=== PATIENT | female | born 1995 | race Caucasian/White ===

== ENCOUNTER 2023-11-25 19:21 | Emergency (ER) | payer OTHER, SELFPAY ==
[2023-11-25 19:36] VITALS: BP 136/86; PULSE 105; TEMP 37.3; O2SAT 99; BMI 22.5
--- NOTE | 2023-11-25 20:23 | US_ITS ---
[address] [address] Patient Name: BONNIE DESOUZA MRN: [id number] date: 1995 Sex: F Assigned Patient Location: ER Current Patient Location: ER Accession/Order Number: [id number] Exam Date: 11/25/2023 20:36 Report Date: 11/25/2023 22:01 At the request of: YANN DASILVA Procedure: US OB transvaginal EXAM: Pelvic ultrasound ultrasound CLINICAL INDICATION: R/O ectopic. COMPARISON: None TECHNIQUE: Transvaginal pelvic ultrasound was performed with grayscale and color Doppler images were obtained. FINDINGS: Uterus: No abnormal uterine masses. Endometrium measures 11 mm thickness. No intrauterine evident. Right ovary: Measures 3.0 x 1.9 x 2.1 cm. Normal color flow and Doppler arterial and venous waveforms. No ovarian masses. Right ovarian dominant follicle measuring up to 1.4 cm. Left ovary: Measures 3.1 x 1.7 x 2.9 cm. Normal color flow and Doppler arterial and venous waveforms. No ovarian masses. Intermediate echogenicity left ovarian lesion measuring up to 1.9 cm. Small amount of free fluid in the pelvis. US/US OB transvaginal IMPRESSION: 1. No intrauterine evident. Normal early intrauterine , ectopic or spontaneous cannot be excluded. Recommend clinical and ultrasound follow-up. 2. Indeterminate small left ovarian lesion. Electronically authenticated by: ANGÉLICA LEGGETT Date: 11/25/2023 22:01
[2023-11-25 20:26] LABS: Bilirubin Urine NEGATIVE (NEGATIVE); Blood Urine NEGATIVE (NEGATIVE); Clarity Urine CLEAR (CLEAR); Color Urine YELLOW (YELLOW); Glucose Urine UA NEGATIVE (NEGATIVE); Ketones Urine NEGATIVE (NEGATIVE); Leukocyte Esterase Urine NEGATIVE (NEGATIVE); Nitrite Urine NEGATIVE (NEGATIVE); Protein Urine NEGATIVE (NEG/TRACE); Specific Gravity Urine >=1.030 (1.005-1.025)
--- NOTE | 2023-11-25 20:27 | ED_ITS ---
HPI - Female Genitourinary General Chief complaint: OB/Uterine Contractions Stated complaint: Issue Time Seen by Provider: 11/25/23 19:31 Source: patient Mode of arrival: walk-in Limitations: no limitations History of Present Illness HPI Narrative: This 28-year-old female who has had an ectopic in the past and 3 live births presents for evaluation of right-sided abdominal pain and positive test. The patient states she had 2 menstrual periods in October which was unusual for her. She started having breast tenderness and became concerned that she may be and took a home test that was positive. She is not currently having any vaginal bleeding. She declines need for any pain medication. She request to have an ultrasound to rule out an ectopic. She states she had an ectopic in 2016 or 2017. She had methotrexate at that time and did not require surgery. She denies any dizziness shortness of breath or syncope. She has no back pain. Related Data Home Medications ?Medication ?Instructions ?Recorded ?Confirmed No Known Home Medications 11/25/23 11/25/23 Allergies Allergy/AdvReac Type Severity Reaction Status Date / Time No Known Drug Allergies Allergy Verified 11/25/23 19:43 Review of Systems ROS Status of ROS 10 or more systems reviewed and unremark able except as noted in history and below Exam Narrative Exam Narrative: Vital signs and Nursing Notes reviewed: Patient is afebrile, she is mildly tachycardic with a pulse of 105, blood pressure is stable at 136/86, she is not hypoxic with pulse ox of 99% on room air General: Awake, alert, oriented, no acute distress, lying comfortably on the stretcher HEENT: Normocephalic atraumatic, mucous membranes are moist and pink, eyes are clear, normal conjunctiva, vision is grossly intact Neck: Supple, no meningeal signs, no anterior or posterior cervical lymphadenopathy Chest: Lungs are clear to auscultation with good air entry, there is no wheezing rhonchi or rales appreciated no accessory muscle use, patient is speaking in complete sentences-no chest wall tenderness to palpation CVS: Regular rate and rhythm S1-S2, no murmurs rubs or gallops, pulses are brisk and equal bilaterally ABD: Soft, nondistended, nontender, no rebound guarding or rigidity, bowel sounds are normal, no pulsatile masses appreciated Extremities: Moving all extremities, no lower extremity tenderness or swelling noted, negative Homans' sign, pulses are brisk and equal bilaterally Skin: Normal in appearance without rash,pallor, petechiae or purpura Neuro: No focal deficits Constitutional Vital Signs, click to edit/add: Last Vital Signs Temp 99.1 F 11/25/23 19:36 Pulse 105 H 11/25/23 19:36 Resp 18 11/25/23 19:36 BP 136/86 11/25/23 19:36 Pulse Ox 99 11/25/23 19:36 O2 Del Method Room Air 11/25/23 19:36 Course Vital Signs Vital signs: Vital Signs Temperature 99.1 F 11/25/23 19:36 Pulse Rate 105 H 11/25/23 19:36 Respiratory Rate 18 11/25/23 19:36 Blood Pressure 136/86 11/25/23 19:36 Pulse Oximetry 99 11/25/23 19:36 Oxygen Delivery Method Room Air 11/25/23 19:36 Temperature 99.1 F 11/25/23 19:36 Pulse Rate 105 H 11/25/23 19:36 Respiratory Rate 18 11/25/23 19:36 Blood Pressure 136/86 11/25/23 19:36 Pulse Oximetry 99 11/25/23 19:36 Oxygen Delivery Method Room Air 11/25/23 19:36 MDM - Female Genitourinary MDM Narrative Medical decision making narrative: This 28-year-old female who is G8, P3 who has had an ectopic in the past presents for evaluation of right lower quadrant abdominal pain and 2 menstrual periods during the month of October 2023 who had a positive test earlier in the day presents for evaluation and concerns that she has an ectopic . Her abdomen is soft. Vital signs are stable. Urine test was positive. Beta quantitative hCG is 50, blood type is B+. Ultrasound of the abdomen and pelvis does not show any intrauterine or ectopic at this time. I did explain to the patient that with a quant of 50 this could be an early that is normal or could be an ectopic. The patient sees Dr. cAe at [facility]. She was given a copy of her ultrasound to share with Dr. Ace as well as the results of her lab work. Medical Records Medical records narrative: [place] [address] Ultrasound Report Signed Patient: BONNIE DESOUZA MR#: [id number] : 1995 Acct:[id number] Age/Sex: 28 / F ADM Date: 11/25/23 Loc: ER Attending Dr: Ordering Physician: Jenelle Khan Date of Service: 11/25/23 Procedure(s): US OB transvaginal Accession Number(s): [id number] cc: DONNIE LEVI ; Jenelle Marker~ [facility] [place] [id number] Patient Name: BONNIE DESOUZA MRN: [id number] date: 1995 Sex: F Assigned Patient Location: ER Current Patient Location: ER Accession/Order Number: [id number] Exam Date: 11/25/2023 20:36 Report Date: 11/25/2023 22:01 At the request of: JENELLE KHAN Procedure: US OB transvaginal EXAM: Pelvic ultrasound ultrasound CLINICAL INDICATION: R/O ectopic. COMPARISON: None TECHNIQUE: Transvaginal pelvic ultrasound was performed with grayscale and color Doppler images were obtained. FINDINGS: Uterus: No abnormal uterine masses. Endometrium measures 11 mm thickness. No intrauterine evident. Right ovary: Measures 3.0 x 1.9 x 2.1 cm. Normal color flow and Doppler arterial and venous waveforms. No ovarian masses. Right ovarian dominant follicle measuring up to 1.4 cm. Left ovary: Measures 3.1 x 1.7 x 2.9 cm. Normal color flow and Doppler arterial and venous waveforms. No ovarian masses. Intermediate echogenicity left ovarian lesion measuring up to 1.9 cm. Small amount of free fluid in the pelvis. US/US OB transvaginal IMPRESSION: 1. No intrauterine evident. Normal early intrauterine , ectopic or spontaneous cannot be excluded. Recommend clinical and ultrasound follow-up. 2. Indeterminate small left ovarian lesion. Electronically authenticated by: ANGÉLICA LEGGETT Date: 11/25/2023 22:01 Lab Data Labs: Lab Results 11/25/23 11/25/23 Range/Units 20:15 21:08 WBC 10.1 (4.0-11.0) 10^3/uL RBC 4.56 (4.20-5.40) 10^6/uL Hgb 13.3 (12.0-16.0) g/dL Hct 40.3 (36.0-48.0) % MCV 88.4 (81.0-99.0) fL MCH 29.2 (26.7-34.0) pg MCHC 33.0 (29.9-35.2) g/dL RDW 11.9 (11.0-15.0) % Plt Count 346 (150-450) 10^3/uL MPV 9.3 L (9.5-13.5) fL Neut % (Auto) 58.4 (43.0-75.0) % Lymph % (Auto) 28.2 (20.5-60.0) % [place] % (Auto) 5.8 (1.7-12.0) % Eos % (Auto) 6.6 (0.9-7.0) % Baso % (Auto) 0.7 (0.2-2.0) % Neut # (Auto) 5.9 (1.4-6.5) 10^3/uL Lymph # (Auto) 2.8 (1.2-3.8) 10^3/uL [place] # (Auto) 0.6 (0.3-0.8) 10^3/uL Eos # (Auto) 0.7 (0.0-0.7) 10^3/uL Baso # (Auto) 0.1 (0.0-0.1) 10^3/uL Abs Immat Gran (auto) 0.03 (0.00-0.03) 10^3/uL Imm/Tot Granulo (auto) 0.3 (0.0-0.5) % Sodium 140 (136-145) mmol/L Potassium 3.7 (3.5-5.1) mmol/L Chloride 103 (98-107) mmol/L Carbon Dioxide 28.9 (21.0-32.0) mmol/L Anion Gap 11.8 BUN 12.0 (7.0-18.0) mg/dL Creatinine 0.70 (0.55-1.02) mg/dL Est GFR ( Amer) >60 (>=60) Est GFR (Non-Af Amer) >60 (>=60) BUN/Creatinine Ratio 17.1 Glucose 91 (74-106) mg/dL Calcium 9.3 (8.5-10.1) mg/dL Total Bilirubin 1.1 H (0.2-1.0) mg/dL AST 10 L (15-37) U/L ALT 21 (14-59) U/L Alkaline Phosphatase 79 (46-116) U/L Total Protein 8.1 (6.4-8.2) g/dL Albumin 4.3 (3.4-5.0) g/dL Globulin 3.8 g/dL Albumin/Globulin Ratio 1.1 HCG, Quant 50 mIU/mL Urine Color Yellow (YELLOW) Urine Clarity Clear (CLEAR) Urine pH 6.0 (5.0-9.0) Ur Specific [place] >=1.030 A (1.005-1.025) Urine Protein Negative (NEG/TRACE) mg/dL Urine Glucose (UA) Negative (NEGATIVE) mg/dL Urine Ketones Negative (NEGATIVE) mg/dL Urine Occult Blood Negative (NEGATIVE) Urine Nitrite Negative (NEGATIVE) Urine Bilirubin Negative (NEGATIVE) Urine Urobilinogen 1.0 (0.2-1.0) EU/dL Ur Leukocyte Esterase Negative (NEGATIVE) Urine RBC None seen (0-2) #/HPF Urine WBC None seen (NONE SEEN) #/HPF Ur Squamous Epith Cells None seen (NONE/RARE) #/LPF Urine Crystals None seen (None Seen) #/HPF Urine Bacteria None seen (NONE SEEN) #/HPF Urine Casts None seen (NONE SEEN) #/LPF Urine Mucus None seen (NONE SEEN) Ur Culture Indicated? No Urine HCG, Qual Positive A (NEGATIVE) Blood Type B Positive Discharge Plan Discharge Stand Alone Forms: Portal Instructions Chief Complaint: OB/Uterine Contractions Clinical Impression: Early stage of Patient Disposition: Home, Self-Care Time of Disposition Decision: 22:16 Condition: Good Prescriptions / Home Meds: No Action No Known Home Medications Print Language: Uzbek Instructions: (ED) Additional Instructions: Follow up closely with Dr Ace for repeat quantitative HCG and further testing Referrals: DONNIE LEVI [Primary Care Provider] - 1 week
[2023-11-25 20:29] LABS: HCG Qualitative Urine* POSITIVE (NEGATIVE); Internal Control Within Normal Limits
[2023-11-25 20:32] LABS: Bacteria Urine NONE SEEN #/HPF (NONE SEEN); Cast Seen? NONE SEEN #/LPF (NONE SEEN); Crystals Seen? None Seen #/HPF (None Seen); Mucus Urine NONE SEEN (NONE SEEN); RBC Urine NONE SEEN #/HPF (0-2); Squamous Epithelial Cell Urine NONE SEEN #/LPF (NONE/RARE); Urine Culture Indicated NO; WBC Urine NONE SEEN #/HPF (NONE SEEN)
[2023-11-25 21:27] LABS: Basophils Absolute Auto 0.1 10^3/uL (0.0-0.1); Basophils Percent Auto 0.7 % (0.2-2.0); Eosinophils Absolute Auto 0.7 10^3/uL (0.0-0.7); Eosinophils Percent Auto 6.6 % (0.9-7.0); Hematocrit 40.3 % (36.0-48.0); Hemoglobin 13.3 g/dL (12.0-16.0); Immature Granulocytes Abs Auto 0.03 10^3/uL (0.00-0.03); Immature Granulocytes Pct Auto 0.3 % (0.0-0.5); Lymphocytes Absolute Auto 2.8 10^3/uL (1.2-3.8); Lymphocytes Percent Auto 28.2 % (20.5-60.0); Mean Corpuscular Hemoglobin 29.2 pg (26.7-34.0); Mean Corpuscular Volume 88.4 fL (81.0-99.0); Mean Platelet Volume 9.3 fL (9.5-13.5); Monocytes Absolute Auto 0.6 10^3/uL (0.3-0.8); Monocytes Percent Auto 5.8 % (1.7-12.0); Neutrophils Absolute Auto 5.9 10^3/uL (1.4-6.5); Neutrophils Percent Auto 58.4 % (43.0-75.0); Platelet Count 346 10^3/uL (150-450); Red Blood Count 4.56 10^6/uL (4.20-5.40); Red Cell Distribution Width 11.9 % (11.0-15.0); White Blood Count 10.1 10^3/uL (4.0-11.0)
[2023-11-25 21:44] LABS: Alanine Aminotransferase 21 U/L (14-59); Albumin Globulin Ratio 1.1; Albumin Level 4.3 g/dL (3.4-5.0); Alkaline Phosphatase 79 U/L (46-116); Anion Gap 11.8; Aspartate Amino Transferase 10 U/L (15-37); BUN Creatinine Ratio 17.1; Bilirubin Total 1.1 mg/dL (0.2-1.0); Calcium 9.3 mg/dL (8.5-10.1); Carbon Dioxide 28.9 mmol/L (21.0-32.0); Chloride 103 mmol/L (98-107); Estimated GFR (African America >60 (>=60); Estimated GFR (Non-African Ame >60 (>=60); Globulin 3.8 g/dL; Glucose 91 mg/dL (74-106); Potassium 3.7 mmol/L (3.5-5.1); Sodium 140 mmol/L (136-145); Total Protein 8.1 g/dL (6.4-8.2)
[2023-11-25 21:50] LABS: HCG Quantitative 50 mIU/mL
== END 2023-11-25 22:20 | disposition home or self-care (01) ==
PROVIDERS: Emergency Provider Emergency Medicine; PCP Family Medicine
DX: Z34.91 Encounter for supervision of normal pregnancy, unspecified, first trimester (principal); Z3A.00 Weeks of gestation of pregnancy not specified
CPT/HCPCS: 36415; 76817; 80053; 81001; 84702; 84703; 85025; 86900; 86901; 99284